=== PATIENT | male | born 1940 | race Caucasian/White ===

== ENCOUNTER 2021-10-04 10:43 | Inpatient (IN) | payer MEDICARE, OTHER ==
[~2021-10-04] VITALS: Ht 185.4 cm; Wt 92.1 kg
[~2021-10-04 10:43] MED LIST: ASCORBIC ACID500 MG PO; DEXAMETHASONE 2M2 MG PO; LISINOPRIL-HCT1 EACH PO; NAMENDA 10MG TA10 MG PO; PHENERGAN25 M1 PO; VITAMIN D325 MC1 PO; ZINC SULFATE50 MG PO; ZOFRAN4 MG PO
[2021-10-04 11:31] LABS: BILIRUBIN NEGATIVE (NEGATIVE); BLOOD NEGATIVE Ery/uL (NEGATIVE); CLARITY CLEAR (CLEAR); COLOR YELLOW (YELLOW); GLUCOSE (U) NORMAL (NORMAL); LEUKOCYTES NEGATIVE Leu/uL (NEGATIVE); NITRITE NEGATIVE (NEGATIVE); PROTEIN NEGATIVE (NEGATIVE); SPECIFIC GRAVITY 1.025 (1.001-1.030)
[2021-10-04 12:53] LABS: BASOPHIL 0.2 % (0-2); EOSINOPHIL 0 % (0-7); HCT 37.1 % (42.0-52.0); HGB 12.2 g/dl (13.2-18.0); LYMPHOCYTE 2.4 % (15-48); MCH 29.7 pg (25.0-31.0); MCHC 32.9 g/dL (32.0-36.0); MCV 90.3 fL (78.0-100.0); MONOCYTE 3.2 % (0-12); MPV 9.2 fL (6.0-9.5); NRBC 0; PLT 187 K/uL (150-400); RBC 4.11 M/uL (4.70-6.00); RDW 13.2 % (11.5-14.0); WBC 9.8 K/uL (4.0-10.5)
[2021-10-04 12:55] LABS: NEUTROPHIL 93.2 % (41-80)
[2021-10-04 12:58] LABS: INFLUENZA A NAA NEGATIVE (NEGATIVE)
[2021-10-04 13:08] LABS: CORONAVIRUS 2019 SARS-COV-2 POSITIVE (NEGATIVE)
[2021-10-04 13:13] LABS: INR 1.13 (0.9-1.2); PROTHROMBIN TIME 13.9 SECONDS (11.8-13.4); PTT 22.4 SECONDS (24.4-34.7)
[2021-10-04 13:15] LABS: D-DIMER 1.02 ug/mLFEU (0.00-0.41)
[2021-10-04 13:41] LABS: LACTIC ACID 2.6 mmol/L (0.4-1.9)
[2021-10-04 13:41] LABS: ALBUMIN 2.6 g/dL (3.4-5.0); BILIRUBIN - TOTAL 0.9 mg/dL (0.2-1.0); BUN/CREAT RATIO (CALC) 44.1 RATIO; CREATININE 1.18 mg/dL (0.67-1.17); GLOBULIN (CALCULATION) 3.6 g/dL; POTASSIUM 3.8 mmol/L (3.5-5.1); TOTAL PROTEIN 6.2 g/dL (6.4-8.2)
[2021-10-05 06:33] LABS: BASOPHIL 0.1 % (0-2); EOSINOPHIL 0 % (0-7); HCT 34.4 % (42.0-52.0); HGB 11.4 g/dl (13.2-18.0); LYMPHOCYTE 3.6 % (15-48); MCH 29.5 pg (25.0-31.0); MCHC 33.1 g/dL (32.0-36.0); MCV 88.9 fL (78.0-100.0); MONOCYTE 4.7 % (0-12); MPV 9.1 fL (6.0-9.5); NEUTROPHIL 89.8 % (41-80); NRBC 0; PLT 187 K/uL (150-400); RBC 3.87 M/uL (4.70-6.00); RDW 13.3 % (11.5-14.0); WBC 7.9 K/uL (4.0-10.5)
[2021-10-05 07:02] LABS: BUN/CREAT RATIO (CALC) 37.5 RATIO; C-REACTIVE PROTEIN 6.8 mg/dL (<=0.90); CREATININE 0.96 mg/dL (0.67-1.17); POTASSIUM 3.7 mmol/L (3.5-5.1)
[2021-10-06 05:28] LABS: BASOPHIL 0.3 % (0-2); EOSINOPHIL 0 % (0-7); HCT 32.6 % (42.0-52.0); HGB 10.7 g/dl (13.2-18.0); LYMPHOCYTE 3.4 % (15-48); MCH 29.6 pg (25.0-31.0); MCHC 32.8 g/dL (32.0-36.0); MCV 90.1 fL (78.0-100.0); MONOCYTE 2.8 % (0-12); MPV 9.4 fL (6.0-9.5); NEUTROPHIL 89.6 % (41-80); NRBC 0; PLT 200 K/uL (150-400); RBC 3.62 M/uL (4.70-6.00); RDW 13.3 % (11.5-14.0); WBC 6.5 K/uL (4.0-10.5)
[2021-10-06 05:49] LABS: BUN/CREAT RATIO (CALC) 29.6 RATIO; C-REACTIVE PROTEIN 5.1 mg/dL (<=0.90); CREATININE 0.98 mg/dL (0.67-1.17); POTASSIUM 4.3 mmol/L (3.5-5.1)
[2021-10-07 11:15] LABS: BUN/CREAT RATIO (CALC) 30.3 RATIO; CREATININE 0.99 mg/dL (0.67-1.17); POTASSIUM 3.7 mmol/L (3.5-5.1)
[2021-10-08 05:04] LABS: BASOPHIL 0.2 % (0-2); EOSINOPHIL 0.1 % (0-7); HCT 34.2 % (42.0-52.0); HGB 11.2 g/dl (13.2-18.0); LYMPHOCYTE 5.4 % (15-48); MCH 29.7 pg (25.0-31.0); MCHC 32.7 g/dL (32.0-36.0); MCV 90.7 fL (78.0-100.0); MONOCYTE 3.2 % (0-12); MPV 9.1 fL (6.0-9.5); NEUTROPHIL 87.6 % (41-80); NRBC 0; PLT 218 K/uL (150-400); RBC 3.77 M/uL (4.70-6.00); RDW 13.2 % (11.5-14.0); WBC 8.1 K/uL (4.0-10.5)
[2021-10-08 05:45] LABS: BUN/CREAT RATIO (CALC) 30.6 RATIO; CREATININE 0.98 mg/dL (0.67-1.17); POTASSIUM 4.7 mmol/L (3.5-5.1)
[2021-10-09 06:05] LABS: BASOPHIL 0.3 % (0-2); EOSINOPHIL 0.5 % (0-7); HCT 34.7 % (42.0-52.0); HGB 11.3 g/dl (13.2-18.0); LYMPHOCYTE 7.6 % (15-48); MCH 29.2 pg (25.0-31.0); MCHC 32.6 g/dL (32.0-36.0); MCV 89.7 fL (78.0-100.0); MONOCYTE 3.5 % (0-12); MPV 9.2 fL (6.0-9.5); NEUTROPHIL 84.3 % (41-80); NRBC 0; PLT 209 K/uL (150-400); RBC 3.87 M/uL (4.70-6.00); WBC 6.6 K/uL (4.0-10.5)
[2021-10-09 06:11] LABS: C-REACTIVE PROTEIN 3.9 mg/dL (<=0.90); CREATININE 1.08 mg/dL (0.67-1.17); POTASSIUM 3.8 mmol/L (3.5-5.1)
[2021-10-10 07:08] LABS: BUN/CREAT RATIO (CALC) 24.8 RATIO; CREATININE 1.01 mg/dL (0.67-1.17)
--- NOTE | 2021-10-10 10:16 | NUR ---
TC TO MACHELLE AT [facility]. ADVISED HER THAT DR. ALVARENGA IS RECOMMENDING PERSONAL CARE AT THIS TIME. MACHELLE WANTED TO KNOW IF WE WERE ALLOWING VISITORS. I ADVISED HER THAT IF SHE NEEDS TO EVALUATE PT. SHE MAY COME TO SEE PT. ALSO ADVISED THAT PT MAY RETURN TO [facility] ON O2.
[2021-10-10] MEDS ORDERED: LASIX40 MG PO (13:59)
[2021-10-10] MEDS ORDERED: TEMAZEPAM 15MG15 MG PO (13:59)
[2021-10-10] MEDS ORDERED: DULCOLAX5 MG PO (13:59)
[2021-10-10] MEDS ORDERED: DUONEB 2.5-0.5M1 AMP NEB (14:01)
--- NOTE | 2021-10-10 14:17 | NUR ---
ADVISED MACHELLE THAT PT WILL BE RETURNING TO [facility] THIS DATE AND THAT THE DOCTOR WANTS PERSONAL CARE. CALL REPORT TO . FAXE D/C SUMMARY TO [phone]. [facility] DELIVERED OXYGEN TO PT AND WILL DELIVER CONCENTRATOR TO [facility].
== END 2021-10-10 15:48 | DRG 871 ==
LOC: FER 10:43 → FMS 14:42
PROVIDERS: Emergency Medicine; ADMIT Allergy & Immunology Allergy
PROC: 8E0ZXY6 Isolation (ICD-10-PCS; principal; 2021-10-05)
DX: A41.89 Other specified sepsis (principal); U07.1 COVID-19; J12.82 Pneumonia due to coronavirus disease 2019; J96.01 Acute respiratory failure with hypoxia; J18.9 Pneumonia, unspecified organism; J44.0 Chronic obstructive pulmonary disease with (acute) lower respiratory infection; J44.1 Chronic obstructive pulmonary disease with (acute) exacerbation; N17.9 Acute kidney failure, unspecified; C34.11 Malignant neoplasm of upper lobe, right bronchus or lung; C34.2 Malignant neoplasm of middle lobe, bronchus or lung; F05 Delirium due to known physiological condition; Z66 Do not resuscitate; Y95 Nosocomial condition; F03.90 Unspecified dementia, unspecified severity, without behavioral disturbance, psychotic disturbance, mood disturbance, and anxiety; I10 Essential (primary) hypertension; R53.83 Other fatigue; Z88.8 Allergy status to other drugs, medicaments and biological substances; Z79.899 Other long term (current) drug therapy; Z87.891 Personal history of nicotine dependence
CPT/HCPCS: 36415; 36600; 71045; 71275; 80048; 80053; 81003; 82803; 83605; 83880; 84145; 84484; 85025; 85379; 85610; 85730; 86140; 87040; 87088; 93005; 94010; 94640; 94664; 97162; 97166; 97530-GP; 97535; J1100; J1642; J1650; J1940; J2020; J2543; J3486; J7040; J7120; Q9967; U0002

== ENCOUNTER 2021-10-24 11:01 | Day surgery (SDCO) | payer MEDICARE, OTHER ==
[~2021-10-24] VITALS: Ht 185.4 cm; Wt 89.9 kg
[~2021-10-24 11:01] MED LIST changes: +DULCOLAX5 MG PO; +DUONEB 2.5-0.5M1 AMP NEB; +LASIX40 MG PO; +TEMAZEPAM 15MG15 MG PO
[2021-10-24 13:22] LABS: BASOPHIL 0.8 % (0-2); EOSINOPHIL 1.6 % (0-7); HCT 37.7 % (42.0-52.0); LYMPHOCYTE 12.2 % (15-48); MCH 29.3 pg (25.0-31.0); MCHC 31.8 g/dL (32.0-36.0); MONOCYTE 9.9 % (0-12); MPV 9.6 fL (6.0-9.5); NEUTROPHIL 72.3 % (41-80); NRBC 0; PLT 160 K/uL (150-400); RDW 13.7 % (11.5-14.0); WBC 5.1 K/uL (4.0-10.5)
[2021-10-24 13:34] LABS: INR 1.03 (0.9-1.2); PROTHROMBIN TIME 12.9 SECONDS (11.8-13.4); PTT 25.9 SECONDS (24.4-34.7)
[2021-10-24 13:42] LABS: BILIRUBIN NEGATIVE (NEGATIVE); BLOOD NEGATIVE Ery/uL (NEGATIVE); CLARITY CLEAR (CLEAR); COLOR YELLOW (YELLOW); GLUCOSE (U) NORMAL (NORMAL); LEUKOCYTES NEGATIVE Leu/uL (NEGATIVE); NITRITE NEGATIVE (NEGATIVE); PROTEIN NEGATIVE (NEGATIVE); UROBILINOGEN 0.2 mg/dL (0.2-1.0)
[2021-10-24 13:43] LABS: ALBUMIN 3.2 g/dL (3.4-5.0); BILIRUBIN - TOTAL 0.7 mg/dL (0.2-1.0); BUN/CREAT RATIO (CALC) 26.2 RATIO; CREATININE 1.91 mg/dL (0.67-1.17); POTASSIUM 4.1 mmol/L (3.5-5.1); TOTAL PROTEIN 6.2 g/dL (6.4-8.2)
[2021-10-24 13:57] LABS: LACTIC ACID 1.6 mmol/L (0.4-1.9)
[2021-10-24 13:59] LABS: CORONAVIRUS 2019 SARS-COV-2 NEGATIVE (NEGATIVE); INFLUENZA A NAA NEGATIVE (NEGATIVE)
[2021-10-24 20:11] LABS: BUN/CREAT RATIO (CALC) 28.6 RATIO; CREATININE 1.68 mg/dL (0.67-1.17); POTASSIUM 3.9 mmol/L (3.5-5.1)
[2021-10-25 05:25] LABS: BUN/CREAT RATIO (CALC) 28.4 RATIO; CREATININE 1.55 mg/dL (0.67-1.17); POTASSIUM 3.7 mmol/L (3.5-5.1)
[2021-10-26 06:26] LABS: BUN/CREAT RATIO (CALC) 28.1 RATIO; CREATININE 1.21 mg/dL (0.67-1.17)
--- NOTE | 2021-10-26 13:57 | NUR ---
SPOKE WITH PT. SON, ADOLPH. ADOLPH STATED THAT HE WANTS HIS FATHER TO RETURN TO THE PERSONAL CARE AT [facility]. HE HAS A NURSE PRACTIONER AND THERAPY AT THE FACILITY. ADVISED JASMIN GRIGSBY.
--- NOTE | 2021-10-26 14:11 | NUR ---
PT. HAS O2 AT [place]. REPORT NUMBER IS [phone] FAX NUMBER FOR D/C SUMMARY IS [phone]
--- NOTE | 2021-10-26 14:36 | NUR ---
PT IS CURRENT WITH ALBERT HOLM.
[2021-10-27 06:44] LABS: HCT 31.6 % (42.0-52.0); HGB 10.2 g/dl (13.2-18.0); MCH 29.5 pg (25.0-31.0); MCHC 32.3 g/dL (32.0-36.0); MCV 91.3 fL (78.0-100.0); MPV 9.3 fL (6.0-9.5); RBC 3.46 M/uL (4.70-6.00); WBC 3.2 K/uL (4.0-10.5)
[2021-10-27 07:11] LABS: BUN/CREAT RATIO (CALC) 22.6 RATIO; CREATININE 1.24 mg/dL (0.67-1.17); POTASSIUM 4.5 mmol/L (3.5-5.1)
[2021-10-27] MEDS ORDERED: DUONEB 2.5-0.5M1 AMP NEB ×2 (08:19)
[2021-10-27] MEDS ORDERED: TEMAZEPAM 15MG15 MG PO (11:28)
== END 2021-10-27 11:59 | disposition home health service (06) ==
LOC: FER 11:01 → FOFB 10-25 09:04 → FMS 10-25 09:04 → FOFB 10-25 09:04 → FMS 10-25 18:51
PROVIDERS: Emergency Medicine; Internal Medicine; Nurse Practitioner Acute Care; ADMIT Internal Medicine
DX: I95.9 Hypotension, unspecified (principal); N17.9 Acute kidney failure, unspecified; T50.915A Adverse effect of multiple unspecified drugs, medicaments and biological substances, initial encounter; I12.9 Hypertensive chronic kidney disease with stage 1 through stage 4 chronic kidney disease, or unspecified chronic kidney disease; N18.2 Chronic kidney disease, stage 2 (mild); J98.4 Other disorders of lung; U09.9 Post COVID-19 condition, unspecified; R82.71 Bacteriuria; E86.0 Dehydration; F03.90 Unspecified dementia, unspecified severity, without behavioral disturbance, psychotic disturbance, mood disturbance, and anxiety; J44.9 Chronic obstructive pulmonary disease, unspecified; C34.90 Malignant neoplasm of unspecified part of unspecified bronchus or lung; R60.0 Localized edema; E66.9 Obesity, unspecified; Z87.891 Personal history of nicotine dependence; Z88.8 Allergy status to other drugs, medicaments and biological substances; Z79.899 Other long term (current) drug therapy
CPT/HCPCS: 36415; 36600; 70450; 71045; 80048; 80053; 81003; 82803; 83605; 83880; 84145; 85025; 85610; 85730; 87040; 87076; 87088; 87186; 93005; 94640; G0378; J1630; J1650; J3480; J7030; J7040; U0002